=== PATIENT | female | born 2000 | race Caucasian/White ===

== ENCOUNTER 2022-07-27 20:15 | Emergency (ER) | payer BC ==
[2022-07-27 20:26] VITALS: BP 124/85; PULSE 85; RESP 19; TEMP 97.8; BMI 35.2
[2022-07-27] MEDS ORDERED: ACETAMINOPHEN 1000 MG/100 ML BAG IVPB ONE (21:49)
[2022-07-27] MEDS ORDERED: METOCLOPRAMIDE HCL INJECTION 10 MG/2 ML VIAL IVPUSH ONE (21:49)
[2022-07-27] MEDS ORDERED: LACTATED RINGERS SOLUTION 1000 ML INFUS.BAG IV ONE (21:49)
[2022-07-27] MEDS: ALBUTEROL SO4 2.5/IPRATROPIUM 0.5 INH SOL 3 ML VIAL.NEB. NEB SCH (21:59)
[2022-07-27] MEDS ORDERED: ACETAMINOPHEN INJECTION 100 ML IVPB ONE (22:12)
[2022-07-27] MEDS ORDERED: METOCLOPRAMIDE HCL INJECTION 10 MG/2 ML VIAL ONE (22:12)
[2022-07-27 22:49] LABS: BASO % 0.7 % (0-2.0); EOS % 0.5 % (0-4.5); EPI CELLS >36 /uL (0-25.1); HEMATOCRIT 45.3 % (32.4-45.2); HEMOGLOBIN 14.2 GM/dL (10.7-15.3); HYALINE CASTS 8 /uL (0-3.1); LYMPH % 31.6 % (8-40); MCH 21.6 pg (25.7-33.7); MCHC 31.3 g/dl (32.0-36.0); MEAN PLT VOLUME 9.6 fl (7.5-11.1); MONO % 9.8 % (3.8-10.2); NEUT % 57.4 % (42.8-82.8); PH,URINE 5.5 (5.0-8.0); PLATELET COUNT 305 10^3/uL (134-434); RBC 6.57 M/mm3 (3.60-5.2); RDW 17.6 % (11.6-15.6); URINE APPEARANCE TURBID; URINE BACTERIA 7397 /uL (0-1359); URINE BILIRUBIN 1+ (NEGATIVE); URINE COLOR ORANGE; URINE GLUCOSE (UA) NEGATIVE (NEGATIVE); URINE KETONE 1+ (NEGATIVE); URINE LEUK ESTERASE 1+ (NEGATIVE); URINE NITRITE NEGATIVE (NEGATIVE); URINE PROTEIN 2+ (NEGATIVE); URINE WBC 394 /uL (0-25.8); WHITE BLOOD COUNT 8.8 K/mm3 (4.0-10.0)
[2022-07-27 23:10] LABS: CALCIUM 9.6 mg/dL (8.5-10.1)
[2022-07-27 23:11] LABS: ALBUMIN 4.4 g/dl (3.4-5.0); BLOOD UREA NITROGEN 8.1 mg/dL (7-18)
[2022-07-27 23:15] LABS: CREATININE 0.8 mg/dL (0.55-1.3); TOT PROT 8.5 g/dl (6.4-8.2)
[2022-07-27 23:17] LABS: BILIRUBIN,TOTAL 0.4 mg/dL (0.2-1)
[2022-07-27 23:24] LABS: URINE RBC 61.6 /uL (0-23.9)
== END 2022-07-28 00:29 | disposition home or self-care (01) ==
LOC: JER 20:15
PROC: 3E0F7GC Introduction of Other Therapeutic Substance into Respiratory Tract, Via Natural or Artificial Opening (ICD-10-PCS; principal; 2022-07-27)
PROC: 3E0333Z Introduction of Anti-inflammatory into Peripheral Vein, Percutaneous Approach (ICD-10-PCS; 2022-07-27)
PROC: 3E033GC Introduction of Other Therapeutic Substance into Peripheral Vein, Percutaneous Approach (ICD-10-PCS; 2022-07-27)
DX: J45.909 Unspecified asthma, uncomplicated (principal)
CPT/HCPCS: 0241U-QW; 36415; 71046-TC-FY; 80053; 81003; 85025; 87086; 87186; 93005; 93010; 99285-25